=== PATIENT | male | born 1980 | race Caucasian/White ===

== ENCOUNTER 2017-08-31 10:49 | Inpatient (IN) | payer MEDICAID ==
[~2017-08-31] VITALS: Ht 165.1 cm; Wt 59.0 kg
[2017-08-31] MEDS ORDERED: SODIUM CHLORIDE 0.9% 1,000 ML IV ONE ×2 (11:30→16:30)
[2017-08-31 12:16] LABS: BASOPHILS % 0.3 % (0.0-2.0); HEMATOCRIT. 50.2 % (42.0-52.0); HEMOGLOBIN. 17.1 g/dL (14.0-18.0); LYMPHOCYTES % 12.8 % (20.0-50.0); MEAN CORPUSCULAR HEMOGLOBIN 28.9 pg (28.0-32.0); MEAN CORPUSCULAR VOLUME 85.1 fL (80.0-94.0); MEAN PLATELET VOLUME 9.7 fl (7.4-10.4); MONOCYTES % 4.3 % (2.0-8.0); NEUTROPHILS % 82.6 % (40.0-76.0); PLATELET 303 x1000/uL (130-400); RED CELL DISTRIBUTION WIDTH 13.1 % (11.6-14.6)
[2017-08-31 12:22] LABS: PROTHROMBIN TIME 10.7 sec (9.4-11.6)
[2017-08-31 12:30] LABS: AMMONIA < 25 uMol/L (<32)
[2017-08-31 12:31] LABS: CHLORIDE 83 mEq/L (98-107); ETHANOL BLOOD 76 mg/dL
[2017-08-31 12:36] LABS: BETA HYDROXYBUTYRATE 0.1 mMol/L (0.0-0.3); TROPONIN I < 0.02 ng/mL (0.00-0.04)
[2017-08-31 13:53] LABS: HEPATITIS B SURFACE ANTIGEN NEGATIVE
[2017-08-31 14:21] LABS: HEPATITIS B CORE AB IGM NEGATIVE
[2017-08-31 14:22] LABS: HEPATITIS A AB IGM NEGATIVE (NEGATIVE)
[2017-08-31] MEDS ORDERED: POTASSIUM CHLORIDE INJ 40 MEQ in DEXT 5% WATER 250 ML IV ONE (15:15)
[2017-08-31] MEDS ORDERED: INSULIN REGULAR (DRIP) 100 UNITS in SODIUM CHLORIDE 0.9% 100 ML IV ONE (15:15)
[2017-08-31 15:45] LABS: BG BASE EXCESS 0.1 mmol/L (-2.0-2.0); BG CARBOXYHEMOGLOBIN 0.9 % (0.5-1.5); BG DEOXYHEMOGLOBIN 3.3 % (0.0-5.0); BG HCO3 ACT 24.5 mmol/L (22.0-26.0); BG METHEMOGLOBIN 0.2 % (0.0-1.5); BG OXYGEN SATURATION 96.7 % (92.0-98.5); BG OXYHEMOGLOBIN 95.6 % (94.0-97.0); BG PCO2 39.2 mmHg (35.0-45.0); BG PH 7.413 (7.350-7.450); BG PO2 97.1 mmHg (75.0-100.0); BG SAMPLE SITE RIGHT RADIAL; BG TOTAL HEMOGLOBIN 16.6 g/dL (12.0-18.0); BG VENT MODE ROOM AIR
[2017-08-31] MEDS ORDERED: INSULIN REGULAR (HUMULIN R) 300UNITS/3ML SUBCUT ONE (16:30)
[2017-08-31] MEDS ORDERED: CLONIDINE 0.1MG TABLET PO PRN (19:30)
[2017-08-31] MEDS ORDERED: DIPHENHYDRAMINE 50MG/ML VIAL IV PRN (19:30)
[2017-08-31] MEDS ORDERED: DEXTROSE 50% WATER 50ML SYRINGE IV PRN (19:30)
[2017-08-31] MEDS ORDERED: ONDANSETRON HCL 4MG/2ML VIAL IV PRN (19:30)
[2017-08-31 19:58] LABS: T4 FREE 1.41 ng/dL (0.76-1.46)
[2017-08-31 21:26] LABS: CLARITY URINE CLEAR (CLEAR); COLOR URINE YELLOW (YELLOW); KETONES URINE TRACE (NEGATIVE); LEUKOCYTE ESTERASE URINE NEGATIVE (NEGATIVE); NITRITE URINE NEGATIVE (NEGATIVE); OCCULT BLOOD URINE 1+ (NEGATIVE); PROTEIN URINE 2+ (NEGATIVE); SPECIFIC GRAVITY URINE 1.025 (1.005-1.030); UROBILINOGEN URINE 0.2 E.U./dL (0.2-1.0)
[2017-08-31 21:37] LABS: *AMPHETAMINES SCREEN URINE NEGATIVE (NEGATIVE); *BARBITURATES SCREEN URINE NEGATIVE (NEGATIVE); *BENZODIAZEPINES SCREEN URINE NEGATIVE (NEGATIVE); *COCAINE SCREEN URINE NEGATIVE (NEGATIVE); CANNABINOID URINE SCREEN NEGATIVE (NEGATIVE); METHADONE URINE SCREEN NEGATIVE (NEGATIVE); OPIATES URINE SCREEN NEGATIVE (NEGATIVE); PHENCYCLIDINE URINE SCREEN NEGATIVE (NEGATIVE)
[2017-08-31] MEDS: BLOOD SUGAR DIAGNOSTIC STRIP TEST SCH (22:28)
[2017-08-31] MEDS: INSULIN LISPRO 100 UNITS/ML SUBCUT SCH (22:35)
[2017-08-31] MEDS: SODIUM CHLORIDE 0.9% 1,000 ML IV SCH (23:32)
[2017-08-31] MEDS ORDERED: MAGNESIUM 2 G PREMIX 50 ML IV PRN (23:45)
[2017-08-31] MEDS: METOPROLOL TARTRATE 50MG TABLET PO SCH (23:47)
[2017-09-01] VITALS (12 sets, daily range): BP systolic 96–129; BP diastolic 51–72
[2017-09-01] MEDS: PIPERACILLIN/TAZ 3.375G PREMIX 50 ML IV SCH ×3 (01:18→21:05)
[2017-09-01] MEDS ORDERED: POTASSIUM CHLORIDE INJ 40 MEQ in DEXT 5% WATER 250 ML IV NR (02:00)
[2017-09-01] MEDS ORDERED: VANCOMYCIN 1 G PREMIX 200 ML IV SCH (03:00)
[2017-09-01] MEDS: ACETAMINOPHEN 325MG TABLET PO PRN ×2 (03:23→17:33)
[2017-09-01] MEDS: SODIUM CHLORIDE 0.9% 1,000 ML IV SCH ×3 (05:13→17:02)
[2017-09-01 07:41] LABS: BASOPHILS % 0.3 % (0.0-2.0); EOSINOPHILS % 0.1 % (0.0-5.0); HEMOGLOBIN. 13.9 g/dL (14.0-18.0); LYMPHOCYTES % 15.9 % (20.0-50.0); MEAN CORPUSCULAR HEMOGLOBIN 28.8 pg (28.0-32.0); MEAN CORPUSCULAR VOLUME 85.1 fL (80.0-94.0); MEAN PLATELET VOLUME 9.7 fl (7.4-10.4); NEUTROPHILS % 73.7 % (40.0-76.0); PLATELET 245 x1000/uL (130-400); RED BLOOD CELL COUNT 4.82 mill/uL (4.7-6.1); RED CELL DISTRIBUTION WIDTH 13.1 % (11.6-14.6)
[2017-09-01] MEDS: BLOOD SUGAR DIAGNOSTIC STRIP TEST SCH ×4 (07:47→21:00)
[2017-09-01 08:11] LABS: CHLORIDE 92 mEq/L (98-107)
[2017-09-01] MEDS: PANTOPRAZOLE SODIUM 40 MG/VIAL IV SCH (08:20)
[2017-09-01] MEDS: ENOXAPARIN 40MG/0.4ML SYR SUBCUT SCH (08:22)
[2017-09-01] MEDS: METOPROLOL TARTRATE 50MG TABLET PO SCH ×2 (08:22→21:05)
[2017-09-01] MEDS: INSULIN LISPRO 100 UNITS/ML SUBCUT SCH ×4 (08:23→21:06)
[2017-09-01] MEDS: VANCOMYCIN 1 G PREMIX 200 ML IV SCH ×2 (10:42→22:09)
[2017-09-01] MEDS: INSULIN GLARGINE UD 100 UNITS/ML SYR SUBCUT SCH ×2 (10:43→21:07)
[2017-09-01] MEDS ORDERED: POTASSIUM CHLORIDE INJ 40 MEQ in DEXT 5% WATER 250 ML IV SCH (12:00)
[2017-09-01] MEDS ORDERED: POTASSIUM CHLORIDE 20MEQ TABLET SR PO SCH (12:00)
[2017-09-01] MEDS ORDERED: MAGNESIUM 2 G PREMIX 50 ML IV NR (16:30)
[2017-09-02] VITALS (11 sets, daily range): BP systolic 96–157; BP diastolic 16–81
[2017-09-02] MEDS: SODIUM CHLORIDE 0.9% 1,000 ML IV SCH ×4 (04:05→17:19)
[2017-09-02] MEDS: PIPERACILLIN/TAZ 3.375G PREMIX 50 ML IV SCH ×4 (04:30→23:03)
[2017-09-02 07:18] LABS: BASOPHILS % 0.6 % (0.0-2.0); EOSINOPHILS % 1.7 % (0.0-5.0); HEMATOCRIT. 41.3 % (42.0-52.0); LYMPHOCYTES % 37.9 % (20.0-50.0); MEAN CORPUSCULAR HEMOGLOBIN 28.9 pg (28.0-32.0); MEAN CORPUSCULAR VOLUME 85.2 fL (80.0-94.0); MEAN PLATELET VOLUME 9.9 fl (7.4-10.4); MONOCYTES % 9.9 % (2.0-8.0); NEUTROPHILS % 49.9 % (40.0-76.0); PLATELET 217 x1000/uL (130-400); RED BLOOD CELL COUNT 4.85 mill/uL (4.7-6.1)
[2017-09-02] MEDS: BLOOD SUGAR DIAGNOSTIC STRIP TEST SCH ×4 (07:30→20:56)
[2017-09-02 07:50] LABS: CHLORIDE 96 mEq/L (98-107); PHOSPHORUS 2.2 mg/dL (2.5-4.9)
[2017-09-02] MEDS: PANTOPRAZOLE SODIUM 40 MG/VIAL IV SCH (08:48)
[2017-09-02] MEDS: ENOXAPARIN 40MG/0.4ML SYR SUBCUT SCH (08:48)
[2017-09-02] MEDS: METOPROLOL TARTRATE 50MG TABLET PO SCH (08:53)
[2017-09-02] MEDS: INSULIN LISPRO 100 UNITS/ML SUBCUT SCH ×4 (08:59→20:57)
[2017-09-02] MEDS ORDERED: POTASSIUM CHLORIDE 20MEQ TABLET SR PO SCH ×2 (09:00→11:00)
[2017-09-02] MEDS: VANCOMYCIN 1 G PREMIX 200 ML IV SCH ×2 (11:09→21:31)
[2017-09-02] MEDS: INSULIN GLARGINE UD 100 UNITS/ML SYR SUBCUT SCH ×2 (11:22→21:33)
[2017-09-02 17:06] LABS: BARBITURATE SCREEN Negative ug/mL (Cutoff:0.1); BENZODIAZEPINE SCREEN Negative ng/mL (Cutoff:20); OPIATES SCREEN Negative ng/mL (Cutoff:5); PHENCYCLIDINE SCREEN Negative ng/mL (Cutoff:8)
[2017-09-02] MEDS: POTASSIUM CHLORIDE 20MEQ TABLET SR PO SCH ×2 (20:53→23:43)
[2017-09-02] MEDS ORDERED: POTASSIUM PHOS,M-BASIC-D-BASIC 20 MMOL in SODIUM CHLORIDE 0.9% 250 ML IV NR (21:00)
[2017-09-03] VITALS (11 sets, daily range): BP systolic 96–142; BP diastolic 53–86
[2017-09-03] MEDS: PIPERACILLIN/TAZ 3.375G PREMIX 50 ML IV SCH ×3 (05:23→17:34)
[2017-09-03 07:02] LABS: BASOPHILS % 0.9 % (0.0-2.0); EOSINOPHILS % 1.9 % (0.0-5.0); HEMATOCRIT. 38.6 % (42.0-52.0); HEMOGLOBIN. 13.3 g/dL (14.0-18.0); LYMPHOCYTES % 34.5 % (20.0-50.0); MEAN CORPUSCULAR HEMOGLOBIN 29.5 pg (28.0-32.0); MEAN CORPUSCULAR VOLUME 85.3 fL (80.0-94.0); MEAN PLATELET VOLUME 9.7 fl (7.4-10.4); MONOCYTES % 10.8 % (2.0-8.0); NEUTROPHILS % 51.9 % (40.0-76.0); PLATELET 202 x1000/uL (130-400); RED BLOOD CELL COUNT 4.52 mill/uL (4.7-6.1)
[2017-09-03] MEDS: BLOOD SUGAR DIAGNOSTIC STRIP TEST SCH ×3 (07:56→17:35)
[2017-09-03] MEDS: INSULIN LISPRO 100 UNITS/ML SUBCUT SCH ×3 (07:56→17:36)
[2017-09-03 07:59] LABS: CHLORIDE 99 mEq/L (98-107)
[2017-09-03 08:01] LABS: PHOSPHORUS 3.6 mg/dL (2.5-4.9)
[2017-09-03] MEDS: VANCOMYCIN 1 G PREMIX 200 ML IV SCH (08:06)
[2017-09-03] MEDS: ENOXAPARIN 40MG/0.4ML SYR SUBCUT SCH (08:06)
[2017-09-03] MEDS: FAMOTIDINE 20MG TABLET PO SCH ×2 (08:06→17:35)
[2017-09-03] MEDS: INSULIN GLARGINE UD 100 UNITS/ML SYR SUBCUT SCH (10:02)
[2017-09-03] MEDS: POTASSIUM CHLORIDE 20MEQ TABLET SR PO SCH ×2 (12:05→14:05)
[2017-09-03] MEDS ORDERED: POTASSIUM CHLORIDE INJ 40 MEQ in SODIUM CHLORIDE 0.9% 250 ML IV SCH (13:00)
[2017-09-03] MEDS ORDERED: MAGNESIUM OXIDE 400MG TABLET PO NR (17:00)
[2017-09-03] MEDS ORDERED: POTASSIUM CHLORIDE 20MEQ TABLET SR PO SCH (18:00)
== END 2017-09-03 19:00 | disposition home or self-care (01) | DRG 52 ==
LOC: ER 11:00 → EDBEDREQSVC 15:43 → EDBEDREQ 15:43 → EDBEDREQTM 15:43 → ENRESERV 19:19 → EDBEDREQ 23:05 → 5EST 23:14
PROVIDERS: ADMIT Internal Medicine; ATTEND Internal Medicine
DX: G93.41 Metabolic encephalopathy (principal); E11.10 Type 2 diabetes mellitus with ketoacidosis without coma; E87.2 Acidosis; R65.10 Systemic inflammatory response syndrome (SIRS) of non-infectious origin without acute organ dysfunction; E86.0 Dehydration; E87.6 Hypokalemia; Z79.4 Long term (current) use of insulin; Z83.3 Family history of diabetes mellitus
CPT/HCPCS: 36415; 36600; 70450; 71045; 80048; 80051; 80053; 80202; 80305; 80307; 81003; 82010; 82140; 82375; 82805; 82962; 83036; 83605; 83735; 83880; 84100; 84439; 84443; 84484; 85025; 85610; 85651; 86592; 86705; 86709; 86803; 87040; 87086; 87340; 93005; 93970; 96361; 96365; 96366; 96372; 99285; C9113; G0482; J1200; J1650; J1815; J2405; J2543; J3370; J3475; J3480; J3490; J7030; J7050; J7060